=== PATIENT | female | born 1955 | race Caucasian/White ===

== ENCOUNTER → 2022-12-31 12:30 | Outpatient (BNV) | payer MEDICARE, SELFPAY | PROVIDERS: Visit Provider Psychiatry & Neurology Psychiatry | DX: F33.2 Major depressive disorder, recurrent severe without psychotic features (principal) | CPT/HCPCS: 90867; 90868 ==

== ENCOUNTER 2023-03-15 13:00 | Outpatient (RCR) | payer MEDICARE, SELFPAY ==
--- NOTE | 2022-12-31 14:06 | W.PM.TMSCONS ---
History of Present Illness General Data Date of Service: 12/31/2022 Reason for consult: tms evaluation DR LARA [facility] History of Present Illness The patient is a 67-year-old female with a history of recurrent depression who most recently has been followed by Dr. Lara at the [facility] and also sees Kendy Lima in psychotherapy. The patient is referred for TMS has a noted elevated PHQ-9 that she describes is very difficult with intermittent thoughts at times that she would be better off but denies any active plan or intent. The patient's 16 months ago they were quite close she has been increasingly despondent over the past year having a very difficult time adjusting to loss of her and living alone despite having an excellent support system and friendship network. Patient is retired used to work for the [employer] the past after that had had a part-time job but has not in a number of years and has been quite ruminating states that she is feeling anguish and despair on a daily basis. There have been no suicide attempts but she cannot stand how she has been feeling. 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 PATIENT USED TO WORK AT [employer] IN [place] PATIENT LOST HER AFTER A LONG LOUIS WITH CONSEQUENCES AGENT ORANGE A LITTLE OVER A YEAR AGO. SHE DOES HAVE A GOOD SUPPORT SYSTEM. NO CHILDREN SHE DOES HAVE A BROTHER IN [place]. I YOUNGER BROTHER WHO OF HIV A NUMBER OF YEARS AGO Substance History: NONE Meds/Allergies Meds Narrative: PATIENT CURRENTLY ON WELLBUTRIN 150 MG DAILY was on up to 300 mg OVER THE PAST YEAR SHE HAS TRIED PAXIL UP TO 10-20 MG CAUSED IRRITABILITY REACTIVITY CYMBALTA 30 MG HAD DIARRHEA ABDOMINAL DISCOMFORT REACTION WAS UNABLE TO TOLERATE VILAZADONE 10 MG WAS QUITE STIMULATING AND CAUSE SIGNIFICANT ANXIETY HAS ALSO TRIED ESCITALOPRAM 10 MG FOR EXTENDED PERIOD TIME WHICH ALSO CONTRIBUTED TO ANXIETY IRRITABILITY Allergies Allergies Allergy/AdvReac Type Severity Reaction Status Date / Time No Known Allergies Allergy Verified 12/31/22 14:04 Mental Status Exam Mental Status Exam Patient Appearance: Well Grooomed Patient Orientation: Person, Place, Time and Situation Level of Consciousness: Awake and Appropriate Patient Behavior: Appropriate Mood Description: Constricted, Depressed and Blunted Affect Description: Appropriate, Constricted and Sad Patient Cognition Impaired: No Ability to Follow Directions: Good Speech Pattern: Clear Memory Description: Intact Hallucinations: None Delusions: Not Present Thought Process: Intact and Goal Oriented Thought Content: positive for Goal Oriented, positive for Preoccupation, positive for Suicidal Ideation and negative for Homicidal Ideation Depressive Symptoms: Increased Anxiety, Increased Irritability, Crying Spells, Loss of Int. in Activity, Feelings of Worthlessness, Hopelessness, Increased Fatigue, Thoughts of /Suicide, Loss of Energy and Difficulty Concentrating Judgement: Good Judgement and Insight: PATIENT STATES IT IS A STRUGGLE ON A DAILY BASIS IN 10 PSYCHIC SUFFERING WISHES AT TIME SHE WAS IN THERAPY BUT WOULD NEVER TAKE HER LIFE NO MANIC HX Assessment & Plan Assessment & Plan (1) Major depressive disorder, recurrent severe without psychotic features: Status: Acute Code(s): F33.2 - Major depressive disorder, recurrent severe without psychotic features Plan The patient has a history of recurrent depression has worked extensively with psychiatric providers and therapist to help recover from this current episode of depression that has lasted over 1 year. Patient patient has had ongoing psychotherapy including CBT has a good support system and has tried multiple antidepressants which have not been effective were has suffered from adverse side effects. The patient has no medical contraindications to TMS no history of implants seizures surgery above the head or neck metallic implants cochlear implant or pacemaker. Patient is suffering significantly and would clearly benefit from TMS trial. Risks benefits including side effects time course expectations were reviewed with patient Total time managing care of this patient today ____ minutes. Patient educated on: diagnosis, medication risk/benefits, TMS and therapeutic strategies Informed Consent: understands
--- NOTE | 2023-01-16 17:17 | HO.TMSDAILY2 ---
TMS Daily Progress Note Daily TMS Progress Note Date of Service: 01/16/23 Week #: 1 Treatment #(09-10): 1 PHQ-9 Pre-Treatment (09-07): 18 PHQ-9 Most Recent (09-07): 18 Reviewed: TMS Mapping/Re-mapping completed Verification: I have reviewed the TMS Zipper Machine Operator Note and agree with the contents. The patient remains a candidate to continue TMS treatment per protocol. Assessment and Plan (1) Major depressive disorder, recurrent severe without psychotic features: Status: Acute Plan Patient completed mapping successfully relatively high MT required for treatment please note corrected PHQ-9 18 Time Spent With Patient Time: Total time managing care of this patient today ____ minutes.
--- NOTE | 2023-01-17 21:32 | HO.TMSDAILY2 ---
TMS Daily Progress Note Daily TMS Progress Note Date of Service: 01/17/23 Week #: 1 Treatment #(09-10): 2 PHQ-9 Pre-Treatment (09-07): 18 PHQ-9 Most Recent (09-07): 18 Reviewed: TMS Tech Note Reviewed Verification: I have reviewed the TMS Artillery Meteorological Man Note and agree with the contents. The patient remains a candidate to continue TMS treatment per protocol. Assessment and Plan (1) Major depressive disorder, recurrent severe without psychotic features: Status: Acute Plan pt tolerating tx Time Spent With Patient Time: Total time managing care of this patient today ____ minutes.
--- NOTE | 2023-01-21 12:37 | P.PNPS_ITS ---
TMS Daily Progress Note Daily TMS Progress Note Date of Service: 01/18/23 Week #: 1 Treatment #(09-10): 3 PHQ-9 Pre-Treatment (09-07): 18 PHQ-9 Most Recent (09-07): 18 Reviewed: TMS Tech Note Reviewed Verification: I have reviewed the TMS Oxidation Operator Note and agree with the contents. The patient remains a candidate to continue TMS treatment per protocol. Assessment and Plan (1) Major depressive disorder, recurrent severe without psychotic features: Status: Acute Plan pt tolerating tx cont plan of care Time Spent With Patient Time: Total time managing care of this patient today ____ minutes.
--- NOTE | 2023-01-21 12:38 | HO.TMSDAILY2 ---
TMS Daily Progress Note Daily TMS Progress Note Date of Service: 01/21/23 Week #: 1 Treatment #(09-10): 4 PHQ-9 Pre-Treatment (09-07): 18 PHQ-9 Most Recent (09-07): 18 Reviewed: TMS Tech Note Reviewed Verification: I have reviewed the TMS Senior Gl Accountant Note and agree with the contents. The patient remains a candidate to continue TMS treatment per protocol. Assessment and Plan (1) Major depressive disorder, recurrent severe without psychotic features: Status: Acute Plan pt anxious and ruminating Time Spent With Patient Time: Total time managing care of this patient today ____ minutes.
--- NOTE | 2023-01-23 12:05 | HO.TMSDAILY2 ---
TMS Daily Progress Note Daily TMS Progress Note Date of Service: 01/22/23 Week #: 1 Treatment #(09-10): 5 PHQ-9 Pre-Treatment (09-07): 18 PHQ-9 Most Recent (09-07): 18 Reviewed: TMS Tech Note Reviewed Verification: I have reviewed the TMS Flanging Operator Note and agree with the contents. The patient remains a candidate to continue TMS treatment per protocol. Assessment and Plan (1) Major depressive disorder, recurrent severe without psychotic features: Status: Acute Plan able to get to 110 % Time Spent With Patient Time: Total time managing care of this patient today ____ minutes.
--- NOTE | 2023-01-24 22:44 | P.PNPS_ITS ---
TMS Daily Progress Note Daily TMS Progress Note Date of Service: 01/23/23 Week #: 2 Treatment #(09-10): 6 PHQ-9 Pre-Treatment (09-07): 18 PHQ-9 Most Recent (09-07): 18 Reviewed: TMS Tech Note Reviewed Verification: I have reviewed the TMS Data Analyst Report Writer Note and agree with the contents. The patient remains a candidate to continue TMS treatment per protocol. Assessment and Plan Time Spent With Patient Time: Total time managing care of this patient today ____ minutes.
--- NOTE | 2023-01-28 16:51 | HO.TMSDAILY2 ---
TMS Daily Progress Note Daily TMS Progress Note Date of Service: 01/24/23 Week #: 2 Treatment #(09-10): 7 PHQ-9 Pre-Treatment (09-07): 18 PHQ-9 Most Recent (09-07): 18 Reviewed: TMS Tech Note Reviewed Verification: I have reviewed the TMS Insurance Examining Clerk Note and agree with the contents. The patient remains a candidate to continue TMS treatment per protocol. Assessment and Plan (1) Major depressive disorder, recurrent severe without psychotic features: Status: Acute Plan tolerating tx ? improvement noted Time Spent With Patient Time: Total time managing care of this patient today ____ minutes.
--- NOTE | 2023-01-30 22:21 | HO.TMSDAILY2 ---
TMS Daily Progress Note Daily TMS Progress Note Date of Service: 01/21/23 Week #: 1 Treatment #(09-10): 4 PHQ-9 Pre-Treatment (09-07): 18 PHQ-9 Most Recent (09-07): 18 Reviewed: TMS Tech Note Reviewed Verification: I have reviewed the TMS Biomedical Instrument Technician Note and agree with the contents. The patient remains a candidate to continue TMS treatment per protocol. Assessment and Plan (1) Major depressive disorder, recurrent severe without psychotic features: Status: Acute Plan No noted side effects continue treatment plan Time Spent With Patient Time: Total time managing care of this patient today ____ minutes.
--- NOTE | 2023-02-23 17:15 | P.PNPS_ITS ---
TMS Daily Progress Note Daily TMS Progress Note Date of Service: 01/25/23 Week #: 2 Treatment #(09-10): 8 PHQ-9 Pre-Treatment (09-07): 18 PHQ-9 Most Recent (09-07): 18 Reviewed: TMS Tech Note Reviewed Verification: I have reviewed the TMS Satellite Installer Note and agree with the contents. The patient remains a candidate to continue TMS treatment per protocol. Assessment and Plan Time Spent With Patient Time: Total time managing care of this patient today ____ minutes.
--- NOTE | 2023-02-23 17:16 | P.PNPS_ITS ---
TMS Daily Progress Note Daily TMS Progress Note Date of Service: 01/28/23 Week #: 2 Treatment #(09-10): 9 PHQ-9 Pre-Treatment (09-07): 18 PHQ-9 Most Recent (09-07): 18 Reviewed: TMS Tech Note Reviewed Verification: I have reviewed the TMS Honing Machine Operator Semiautomatic Note and agree with the contents. The patient remains a candidate to continue TMS treatment per protocol. Assessment and Plan (1) Major depressive disorder, recurrent severe without psychotic features: Status: Acute Plan pt remains quite depressed much more than phq9 shows Time Spent With Patient Time: Total time managing care of this patient today ____ minutes.
--- NOTE | 2023-02-23 17:18 | P.PNPS_ITS ---
TMS Daily Progress Note Daily TMS Progress Note Date of Service: 01/29/23 Week #: 2 Treatment #(09-10): 10 PHQ-9 Pre-Treatment (09-07): 18 PHQ-9 Most Recent (09-07): 13 Reviewed: TMS Tech Note Reviewed Verification: I have reviewed the TMS Customer Associate Note and agree with the contents. The patient remains a candidate to continue TMS treatment per protocol. Assessment and Plan (1) Major depressive disorder, recurrent severe without psychotic features: Status: Acute Plan withdrawn dysphoric Time Spent With Patient Time: Total time managing care of this patient today ____ minutes.
--- NOTE | 2023-02-23 17:20 | P.PNPS_ITS ---
TMS Daily Progress Note Daily TMS Progress Note Date of Service: 01/30/23 Week #: 3 Treatment #(09-10): 11 PHQ-9 Pre-Treatment (09-07): 18 PHQ-9 Most Recent (09-07): 13 Reviewed: TMS Tech Note Reviewed Verification: I have reviewed the TMS Drywall Hanger Helper Note and agree with the contents. The patient remains a candidate to continue TMS treatment per protocol. Assessment and Plan (1) Major depressive disorder, recurrent severe without psychotic features: Status: Acute Plan remains quite depressed difficult fx Time Spent With Patient Time: Total time managing care of this patient today ____ minutes.
--- NOTE | 2023-02-23 17:22 | HO.TMSDAILY2 ---
TMS Daily Progress Note Daily TMS Progress Note Date of Service: 01/31/23 Week #: 3 Treatment #(09-10): 12 PHQ-9 Pre-Treatment (09-07): 18 PHQ-9 Most Recent (09-07): 13 Reviewed: TMS Tech Note Reviewed Verification: I have reviewed the TMS Putty And Patch Worker Note and agree with the contents. The patient remains a candidate to continue TMS treatment per protocol. Assessment and Plan (1) Major depressive disorder, recurrent severe without psychotic features: Status: Acute Plan cont plan of care Time Spent With Patient Time: Total time managing care of this patient today ____ minutes.
--- NOTE | 2023-02-23 17:25 | HO.TMSDAILY2 ---
TMS Daily Progress Note Daily TMS Progress Note Date of Service: 02/01/23 Week #: 3 Treatment #(09-10): 13 PHQ-9 Pre-Treatment (09-07): 18 PHQ-9 Most Recent (09-07): 13 Reviewed: TMS Tech Note Reviewed Verification: I have reviewed the TMS Per Diem Physical Therapist Assistant Note and agree with the contents. The patient remains a candidate to continue TMS treatment per protocol. Assessment and Plan (1) Major depressive disorder, recurrent severe without psychotic features: Status: Acute Plan cont plan of care Time Spent With Patient Time: Total time managing care of this patient today ____ minutes.
--- NOTE | 2023-02-23 17:26 | HO.TMSDAILY2 ---
TMS Daily Progress Note Daily TMS Progress Note Date of Service: 02/04/23 Week #: 3 Treatment #(09-10): 14 PHQ-9 Pre-Treatment (09-07): 18 PHQ-9 Most Recent (09-07): 13 Reviewed: TMS Tech Note Reviewed Verification: I have reviewed the TMS Electrician Rectifier Maintenance Note and agree with the contents. The patient remains a candidate to continue TMS treatment per protocol. Assessment and Plan (1) Major depressive disorder, recurrent severe without psychotic features: Status: Acute Plan remains quite depressed Time Spent With Patient Time: Total time managing care of this patient today ____ minutes.
--- NOTE | 2023-02-23 17:28 | HO.TMSDAILY2 ---
TMS Daily Progress Note Daily TMS Progress Note Date of Service: 02/05/23 Week #: 3 Treatment #(09-10): 15 PHQ-9 Pre-Treatment (09-07): 18 PHQ-9 Most Recent (09-07): 13 Reviewed: TMS Tech Note Reviewed Verification: I have reviewed the TMS Contact Center Team Lead Note and agree with the contents. The patient remains a candidate to continue TMS treatment per protocol. Assessment and Plan Time Spent With Patient Time: Total time managing care of this patient today ____ minutes.
--- NOTE | 2023-02-23 17:29 | HO.TMSDAILY2 ---
TMS Daily Progress Note Daily TMS Progress Note Date of Service: 02/06/23 Week #: 4 Treatment #(09-10): 16 PHQ-9 Pre-Treatment (09-07): 18 PHQ-9 Most Recent (09-07): 13 Reviewed: TMS Tech Note Reviewed Verification: I have reviewed the TMS Pediatric Allergist Note and agree with the contents. The patient remains a candidate to continue TMS treatment per protocol. Assessment and Plan (1) Major depressive disorder, recurrent severe without psychotic features: Status: Acute Time Spent With Patient Time: Total time managing care of this patient today ____ minutes.
--- NOTE | 2023-02-23 17:33 | HO.TMSDAILY2 ---
TMS Daily Progress Note Daily TMS Progress Note Date of Service: 02/07/23 Week #: 4 Treatment #(09-10): 18 PHQ-9 Pre-Treatment (09-07): 18 PHQ-9 Most Recent (09-07): 13 Reviewed: TMS Tech Note Reviewed Verification: I have reviewed the TMS Footwear Sales Representative Note and agree with the contents. The patient remains a candidate to continue TMS treatment per protocol. Assessment and Plan (1) Major depressive disorder, recurrent severe without psychotic features: Status: Acute Plan no clear impmprovement yet Time Spent With Patient Time: Total time managing care of this patient today ____ minutes.
--- NOTE | 2023-02-23 17:36 | HO.TMSDAILY2 ---
TMS Daily Progress Note Daily TMS Progress Note Date of Service: 02/08/23 Week #: 4 Treatment #(09-10): 18 PHQ-9 Pre-Treatment (09-07): 18 PHQ-9 Most Recent (09-07): 13 Reviewed: TMS Tech Note Reviewed Verification: I have reviewed the TMS Staff Mine Warfare Officer Note and agree with the contents. The patient remains a candidate to continue TMS treatment per protocol. Assessment and Plan Time Spent With Patient Time: Total time managing care of this patient today ____ minutes.
--- NOTE | 2023-02-23 17:38 | HO.TMSDAILY2 ---
TMS Daily Progress Note Daily TMS Progress Note Date of Service: 02/11/23 Week #: 4 Treatment #(09-10): 19 PHQ-9 Pre-Treatment (09-07): 18 PHQ-9 Most Recent (09-07): 13 Reviewed: TMS Tech Note Reviewed Verification: I have reviewed the TMS Marketing Operations Intern Note and agree with the contents. The patient remains a candidate to continue TMS treatment per protocol. Assessment and Plan Time Spent With Patient Time: Total time managing care of this patient today ____ minutes.
--- NOTE | 2023-02-23 17:40 | P.PNPS_ITS ---
TMS Daily Progress Note Daily TMS Progress Note Date of Service: 02/13/23 Week #: 4 Treatment #(09-10): 20 PHQ-9 Pre-Treatment (09-07): 18 PHQ-9 Most Recent (09-07): 13 Reviewed: TMS Tech Note Reviewed Verification: I have reviewed the TMS High Voltage Electrician Note and agree with the contents. The patient remains a candidate to continue TMS treatment per protocol. Assessment and Plan (1) Major depressive disorder, recurrent severe without psychotic features: Status: Acute Plan no change ? remap Time Spent With Patient Time: Total time managing care of this patient today ____ minutes.
--- NOTE | 2023-02-23 19:03 | HO.TMSDAILY2 ---
TMS Daily Progress Note Daily TMS Progress Note Date of Service: 02/14/23 Week #: 4 Treatment #(09-10): 21 PHQ-9 Pre-Treatment (09-07): 18 PHQ-9 Most Recent (09-07): 13 Reviewed: TMS Tech Note Reviewed Verification: I have reviewed the TMS Special Library Librarian Note and agree with the contents. The patient remains a candidate to continue TMS treatment per protocol. Assessment and Plan (1) Major depressive disorder, recurrent severe without psychotic features: Status: Acute Plan cont with depressive sx kip choi Time Spent With Patient Time: Total time managing care of this patient today ____ minutes.
--- NOTE | 2023-02-23 19:06 | HO.TMSDAILY2 ---
TMS Daily Progress Note Daily TMS Progress Note Date of Service: 02/15/23 Week #: 5 Treatment #(09-10): 22 PHQ-9 Pre-Treatment (09-07): 18 PHQ-9 Most Recent (09-07): 13 Reviewed: TMS Tech Note Reviewed Verification: I have reviewed the TMS Squeak Rattle And Leak Repairer Note and agree with the contents. The patient remains a candidate to continue TMS treatment per protocol. Assessment and Plan (1) Major depressive disorder, recurrent severe without psychotic features: Status: Acute Plan discussed richard williamson Time Spent With Patient Time: Total time managing care of this patient today ____ minutes.
--- NOTE | 2023-02-23 19:08 | P.PNPS_ITS ---
TMS Daily Progress Note Daily TMS Progress Note Date of Service: 02/19/23 Week #: 5 Treatment #(09-10): 23 PHQ-9 Pre-Treatment (09-07): 18 PHQ-9 Most Recent (09-07): 13 Reviewed: TMS Mapping/Re-mapping completed Verification: I have reviewed the TMS Change Release Manager Note and agree with the contents. The patient remains a candidate to continue TMS treatment per protocol. Assessment and Plan (1) Major depressive disorder, recurrent severe without psychotic features: Status: Acute Plan remapping completed with gordo de la garza still with dep sx Time Spent With Patient Time: Total time managing care of this patient today ____ minutes.
--- NOTE | 2023-02-23 19:11 | HO.TMSDAILY2 ---
TMS Daily Progress Note Daily TMS Progress Note Date of Service: 02/20/23 Week #: 5 Treatment #(09-10): 24 PHQ-9 Pre-Treatment (09-07): 18 PHQ-9 Most Recent (09-07): 13 Reviewed: TMS Tech Note Reviewed Verification: I have reviewed the TMS Rubber Flap Tuber Machine Operator Note and agree with the contents. The patient remains a candidate to continue TMS treatment per protocol. Assessment and Plan (1) Major depressive disorder, recurrent severe without psychotic features: Status: Acute Plan tolerated remap and new tx settings Time Spent With Patient Time: Total time managing care of this patient today ____ minutes.
--- NOTE | 2023-02-23 19:13 | HO.TMSDAILY2 ---
TMS Daily Progress Note Daily TMS Progress Note Date of Service: 02/23/23 Week #: 5 Treatment #(09-10): 25 PHQ-9 Pre-Treatment (09-07): 18 PHQ-9 Most Recent (09-07): 13 Reviewed: TMS Tech Note Reviewed Verification: I have reviewed the TMS Airport Utility Worker Note and agree with the contents. The patient remains a candidate to continue TMS treatment per protocol. Assessment and Plan (1) Major depressive disorder, recurrent severe without psychotic features: Status: Acute Plan pt more hopeful tolerating tx Time Spent With Patient Time: Total time managing care of this patient today ____ minutes.
--- NOTE | 2023-02-23 19:14 | HO.TMSDAILY2 ---
TMS Daily Progress Note Daily TMS Progress Note Date of Service: 02/22/23 Week #: 6 Treatment #(09-10): 26 PHQ-9 Pre-Treatment (09-07): 18 PHQ-9 Most Recent (09-07): 13 Reviewed: TMS Tech Note Reviewed Verification: I have reviewed the TMS It Support Specialist Note and agree with the contents. The patient remains a candidate to continue TMS treatment per protocol. Assessment and Plan (1) Major depressive disorder, recurrent severe without psychotic features: Status: Acute Plan ? some changes noted Time Spent With Patient Time: Total time managing care of this patient today ____ minutes.
--- NOTE | 2023-03-04 16:55 | HO.TMSDAILY2 ---
TMS Daily Progress Note Daily TMS Progress Note Date of Service: 02/25/23 Week #: 6 Treatment #(09-10): 27 PHQ-9 Pre-Treatment (09-07): 18 PHQ-9 Most Recent (09-07): 13 Reviewed: TMS Tech Note Reviewed Verification: I have reviewed the TMS B2B Sales Representative Note and agree with the contents. The patient remains a candidate to continue TMS treatment per protocol. Assessment and Plan (1) Major depressive disorder, recurrent severe without psychotic features: Status: Acute Plan Patient expressing some improvement Time Spent With Patient Time: Total time managing care of this patient today ____ minutes.
--- NOTE | 2023-03-04 16:55 | HO.TMSDAILY2 ---
TMS Daily Progress Note Daily TMS Progress Note Date of Service: 03/04/23 Week #: 6 Treatment #(09-10): 28 PHQ-9 Pre-Treatment (09-07): 18 PHQ-9 Most Recent (09-07): 11 Reviewed: TMS Tech Note Reviewed Verification: I have reviewed the TMS Automotive Professional Note and agree with the contents. The patient remains a candidate to continue TMS treatment per protocol. Assessment and Plan (1) Major depressive disorder, recurrent severe without psychotic features: Status: Acute Plan Some improvement patient remains somewhat discouraged Time Spent With Patient Time: Total time managing care of this patient today ____ minutes.
--- NOTE | 2023-03-04 16:56 | HO.TMSDAILY2 ---
TMS Daily Progress Note Daily TMS Progress Note Date of Service: 02/27/23 Week #: 6 Treatment #(09-10): 29 PHQ-9 Pre-Treatment (09-07): 18 PHQ-9 Most Recent (09-07): 11 Reviewed: TMS Tech Note Reviewed Verification: I have reviewed the TMS Resource Forester Note and agree with the contents. The patient remains a candidate to continue TMS treatment per protocol. Assessment and Plan (1) Major depressive disorder, recurrent severe without psychotic features: Status: Acute Plan pt with variable response Time Spent With Patient Time: Total time managing care of this patient today ____ minutes.
--- NOTE | 2023-03-04 17:13 | P.PNPS_ITS ---
TMS Daily Progress Note Daily TMS Progress Note Date of Service: 02/28/23 Week #: 6 Treatment #(09-10): 30 PHQ-9 Pre-Treatment (09-07): 18 PHQ-9 Most Recent (09-07): 11 Reviewed: TMS Tech Note Reviewed Verification: I have reviewed the TMS Director Social Service Note and agree with the contents. The patient remains a candidate to continue TMS treatment per protocol. Assessment and Plan (1) Major depressive disorder, recurrent severe without psychotic features: Status: Acute Plan Patient was more depressed today but appears to be an anniversary reaction to the of her Time Spent With Patient Time: Total time managing care of this patient today ____ minutes.
--- NOTE | 2023-03-04 17:13 | HO.TMSDAILY2 ---
TMS Daily Progress Note Daily TMS Progress Note Date of Service: 03/01/23 Week #: 7 Treatment #(09-10): 31 PHQ-9 Pre-Treatment (09-07): 18 PHQ-9 Most Recent (09-07): 11 Reviewed: TMS Tech Note Reviewed Verification: I have reviewed the TMS Systems Test Technician Note and agree with the contents. The patient remains a candidate to continue TMS treatment per protocol. Assessment and Plan (1) Major depressive disorder, recurrent severe without psychotic features: Status: Acute Plan Patient has had variable course had seemed improvement may benefit from extended course Time Spent With Patient Time: Total time managing care of this patient today ____ minutes.
--- NOTE | 2023-03-04 17:13 | HO.TMSDAILY2 ---
TMS Daily Progress Note Daily TMS Progress Note Date of Service: 03/04/23 Week #: 7 Treatment #(09-10): 32 PHQ-9 Pre-Treatment (09-07): 18 PHQ-9 Most Recent (09-07): 13 Reviewed: TMS Tech Note Reviewed Verification: I have reviewed the TMS Branch Controller Note and agree with the contents. The patient remains a candidate to continue TMS treatment per protocol. Assessment and Plan (1) Major depressive disorder, recurrent severe without psychotic features: Status: Acute Plan Patient continues to be significantly depressed Time Spent With Patient Time: Total time managing care of this patient today ____ minutes.
== END 2023-03-18 11:43 | disposition home or self-care (01) ==
LOC: HO.PTMS 13:00
PROVIDERS: Visit Provider Psychiatry & Neurology Psychiatry
DX: F33.2 Major depressive disorder, recurrent severe without psychotic features (principal); Z79.899 Other long term (current) drug therapy
CPT/HCPCS: 90867; 90868; 90869

== ENCOUNTER 2024-02-04 10:30 | Outpatient (RCR) | payer MEDICARE, SELFPAY ==
[2024-01-31 12:36] VITALS: BP 120/88; PULSE 62; RESP 18; TEMP 36.3
--- NOTE | 2024-01-31 13:52 | PC.ADMIT ---
Ron is a 68 year old female, she is A/O X4, thought process appears clear and logical, well groomed, affect appears congruent with depressed mood. She was referred due to increase depression and passive SI with no plan or intent. Ron reports that she lost her two years ago whom she was to for 30 years. She reports that after loosing him she feels Broken, states I would be happy to if I were to get diagnosed with cancer. When asked if she had any thoughts to kill herself stated No I would never do that, when asked if she had a plan to kill self or hurt self stated No, I don't care to live but I would never hurt or try killing myself. She reports endorsing 1/10 depression today stated It fluctuates, she reports it get worst at night, reports zoom meetings help as well as her poetry group. She reports she has been having trouble falling asleep and is utilizing A gummy, to sleep. She reports she has a good support system, reports her brother lives in [place] But If I need him, he'll come to me, as well as several closed friends, Some of who've I met through my grief group. She reports that she developed a new hobby I enjoy cooking for myself and my friends, she reports her was the cook and she learned how to cook when he stated It's comforting.
--- NOTE | 2024-02-03 08:33 | HO.PHP ---
[facility] staff member engaged in conversation with Ron who expressed feeling apprehensive around the program. Ron disclosed that she did not like that groups didn't start on time, that people were monopolizing the time, and that the groups weren't geared towards what she was seeking. Ron didn't see the point of weekend planning, in which [facility] staff member provided psycho-education and noted that we do that every Saturday. Ron understands the concept but doesn't feel her depression is that bad. [facility] staff member noted that she sees she doesn't have a therapist at this time and we can help with that. [facility] staff member also noted that every other day, the discussions should be more geared towards what she is seeking. Ron was receptive and stated she will give it a try tomorrow. Ron reported no safety concerns.
--- NOTE | 2024-02-04 22:49 | P.HPPSP_ITS ---
HPI Date of Service: 02/04/24 Chief Complaint: depression Sources of Information: patient interviewed, chart reviewed and crisis/core team assessment reviewed HPI Narrative: Patient is 68 yo female with history of recurrent depression/chronic dysthymia, exacerbated by the loss of her 2 years ago from chronic illness. She continues to struggle with grief, feelings of guilt surrounding events at the time of his , as well as survivors guilt. Soem of this she attributes to being raised [employer]al I live with guilt, it's part of my upbringing. I've always been hard on myself . She says she still feels the weight and pain of her 's as though it happened yesterday and reports that she has found no peace not reprieve from the overwhelming sense of grief and loss and feels she has no purpose in life at this point. She admits to having passive SI, I often wish to not be alive but says this is chronic and says she does not feel as though she is a risk to herself and says she does not have any urge, intention or plan to harm herself. She is on Wellbutrin which she says only modestly helps with energy to some degree. She says she has tried other medications, has also undergone EMDR and TMS in the past, none of which (including Wellbutrin) were helpful. Denies any substance use other than CBD gummy for chronic sleep issues. Denies any history of manic or psychotic symptoms. Patient shares her 's story, being a and exposed to chemicals and toxins during the [place] War, which they felt likely lead to developing lymphoma later in life. 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 She also shares that she recently came across the book the Power of Now by Rayshawn Medellin and says she feels more inclined at this time to more actively engage in her reading groups and meditation and admits feeling conflicted about continuing in the program. 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 PATIENT USED TO WORK AT [employer] IN [place] PATIENT LOST HER AFTER A LONG [place] WITH CONSEQUENCES AGENT ORANGE A LITTLE OVER A YEAR AGO. SHE DOES HAVE A GOOD SUPPORT SYSTEM. NO CHILDREN SHE DOES HAVE A BROTHER IN [place]. I YOUNGER BROTHER WHO OF HIV A NUMBER OF YEARS AGO Diagnostics Vital Signs (24Hr): BMI result Body Mass Index 20.0 Meds/Allergies Meds Home Medications ?Medication ?Instructions ?Recorded ?Confirmed ?Type bupropion HCl 150 mg 24 hr tablet, 150 mg PO DAILY 01/31/24 01/31/24 History extended release cholecalciferol (vitamin D3) 25 1,000 unit PO DAILY 01/31/24 01/31/24 History mcg (1,000 unit) capsule (Vitamin D3) Allergies Allergies Allergy/AdvReac Type Severity Reaction Status Date / Time No Known Allergies Allergy Verified 12/31/22 14:04 Assessment & Plan Assessment & Plan (1) Complicated bereavement: Status: Acute Code(s): F43.21 - Adjustment disorder with depressed mood Plan Admit to [facility] VS reviewed: abrefile, BP 120/88;?62 bpm continue regular medications? Routine lab work ordered EKG, routine for baseline QTc for medication considerations UDS as indicated [facility] reviewed Continue to monitor as per protocol Patient considering discontinuing in program AMA, adding that based on her experience at the program today she does not feel it is a good fit, nor what she needs at this time but said she would be willing to engage in the future if needed. We explored her conflicted feelings and the rationale for discontinuing in program, but ultimately she says she is likely to finish the program today and discharge. Patient educated on: diagnosis and medication risk/benefits Informed Consent: understands Reason for continued partial hosp. stay Substantial Risk for: med/psych decompensation Certification I certify that partial hospital treatment is medically necessary due to the symptoms and problems resulting from the patient's mental illness and the failure to treat the patient at the partial hospital level of care would likely result in the patient requiring inpatient psychiatric care which could not be prevented at a less intensive level of care. Time Spent With Patient Time: Total time managing care of this patient today __60__ minutes.
== END 2024-02-04 23:59 | disposition home or self-care (01) ==
LOC: HO.PHPA 10:30
PROVIDERS: Visit Provider Psychiatry & Neurology Psychiatry
DX: F32.A Depression, unspecified (principal); Z63.4 Disappearance and death of family member
CPT/HCPCS: 90791; 90853

== ENCOUNTER → 2024-02-04 10:30 | Outpatient (BNV) | payer MEDICARE, SELFPAY | PROVIDERS: Visit Provider Psychiatry & Neurology Psychiatry | DX: F43.21 Adjustment disorder with depressed mood (principal) | CPT/HCPCS: 90792 ==